=== PATIENT | male | born 1940 | race Caucasian/White ===

== ENCOUNTER 2022-06-18 09:32 | Outpatient (CLI) | payer MEDICARE | END 2022-06-18 09:33 | disposition home or self-care (01) | LOC: CSHRAD 09:32 | PROVIDERS: ATTEND Internal Medicine | DX: J20.9 Acute bronchitis, unspecified (principal); J45.40 Moderate persistent asthma, uncomplicated; R91.8 Other nonspecific abnormal finding of lung field; K44.9 Diaphragmatic hernia without obstruction or gangrene | CPT/HCPCS: 71046 ==

== ENCOUNTER 2023-04-04 14:32 | Outpatient (CLI) | payer MEDICARE | END 2023-04-04 14:33 | disposition home or self-care (01) | LOC: CSHULT 14:32 | PROVIDERS: ATTEND Internal Medicine | DX: I45.10 Unspecified right bundle-branch block (principal); I08.1 Rheumatic disorders of both mitral and tricuspid valves | CPT/HCPCS: 93306 ==

== ENCOUNTER 2023-06-15 09:09 | Outpatient (CLI) | payer MEDICARE ==
[2023-06-15] MEDS ORDERED: Iopamidol 300 61% 100 ML VIAL FS ONE (10:20)
== END 2023-06-15 09:10 | disposition home or self-care (01) ==
LOC: CSHCT 09:09
PROVIDERS: ATTEND Internal Medicine
DX: M47.26 Other spondylosis with radiculopathy, lumbar region (principal); M43.9 Deforming dorsopathy, unspecified; M51.16 Intervertebral disc disorders with radiculopathy, lumbar region
CPT/HCPCS: 72133; 82565; Q9967

== ENCOUNTER 2023-07-15 07:30 | Outpatient (CLI) | payer MEDICARE | END 2023-07-15 07:31 | disposition home or self-care (01) | LOC: CSHMRI 07:30 | PROVIDERS: ATTEND Family Medicine | DX: M25.551 Pain in right hip (principal); M47.26 Other spondylosis with radiculopathy, lumbar region; M48.061 Spinal stenosis, lumbar region without neurogenic claudication | CPT/HCPCS: 72148 ==

== ENCOUNTER 2023-08-31 12:58 | Outpatient (CLI) | payer MEDICARE | END 2023-08-31 12:59 | disposition home or self-care (01) | LOC: CSHULT 12:58 | PROVIDERS: ATTEND Internal Medicine | DX: N28.1 Cyst of kidney, acquired (principal) | CPT/HCPCS: 76770 ==